=== PATIENT | male | born 1950 | race Caucasian/White ===

== ENCOUNTER 2018-07-13 06:17 | Emergency (ER) | payer BC ==
--- NOTE | 2018-07-13 06:53 | EDM.PDOC ---
ED HPI GENERAL MEDICAL PROBLEM - General Chief Complaint: Chest Pain Stated Complaint: CHEST PAIN Time Seen by Provider: 07/13/18 06:38 Source of Information: Reports: Patient, RN Notes Reviewed - History of Present Illness INITIAL COMMENTS - FREE TEXT/NARRATIVE: 68-year-old male comes in with left anterior chest discomfort. This started about 3 days ago and continues to have "brief stabbing pains left chest, just left of the midline. Noticed that certain types of motion will bring on the pain or make the pain worse. He is not been ill with cough fever or chills. Also has had some mild numbness of the medial aspect of his left arm there is been no focal weakness. No fall or blow to the chest. 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 He does have history of hypertension and also does have history of coronary artery disease with one stent placed about 15 years ago. Middle Chest Pain Score (Numeric/FACES): 4 - Related Data Allergies Allergy/AdvReac Type Severity Reaction Status Date / Time lidocaine Allergy Syncope Verified 07/13/18 06:32 zylocam Allergy Other Uncoded 07/13/18 06:32 Home Meds: Home Meds Omeprazole [Prilosec] 20 mg PO DAILY #14 capsule. 11/01/14 [Rx] Past Medical History Other HEENT History: wears eyeglasses Cardiovascular History: Reports: High Cholesterol, Hypertension, [place] Gastrointestinal History: Reports: GERD - Past Surgical History Cardiovascular Surgical History: Reports: Coronary Artery Stent Social & Family History - Family History Family Medical History: Noncontributory - Tobacco Use Smoking Status *Q: Current Every Day Smoker Years of Tobacco use: 10 Packs/Tins Daily: 1 - Alcohol Use Days Per Week of Alcohol Use: 7 Number of Drinks Per Day: 1 Total Drinks Per Week: 7 - Recreational Drug Use Recreational Drug Use: No ED ROS GENERAL - Review of Systems Review Of Systems: See Below Constitutional: Denies: Fever, Chills HEENT: Reports: No Symptoms Respiratory: Denies: Shortness of Breath, Pleuritic Chest Pain, Cough Cardiovascular: Reports: Chest Pain GI/Abdominal: Denies: Abdominal Pain, Nausea, Vomiting Musculoskeletal: Denies: Shoulder Pain, Arm Pain, Back Pain Skin: Reports: No Symptoms Neurological: Reports: Numbness (He has had some mild numbness the last few days medial aspect of left arm) ED EXAM, GENERAL - Physical Exam Exam: See Below General Appearance: Alert, No Apparent Distress Throat/Mouth: Normal Inspection Head: Atraumatic Neck: Supple, Full Range of Motion Respiratory/Chest: No Respiratory Distress, Lungs Clear, Normal Breath Sounds, Other (There is tenderness in the left chest along the lower left sternal border ) Cardiovascular: Regular Rate, Rhythm GI/Abdominal: Soft, Non-Tender Extremities: Normal Range of Motion. No: Pedal Edema, Leg Pain Neurological: No Motor/Sensory Deficits Skin Exam: Dry, Normal Color EKG INTERPRETATION Rhythm: NSR P-Wave: Present QRS: Normal QT: Normal Course - Vital Signs Last Recorded V/S: Last Vital Signs Temp 98.1 F 07/13/18 06:26 Pulse 82 07/13/18 06:26 Resp 18 07/13/18 06:26 BP 151/99 H 07/13/18 06:26 Pulse Ox 96 07/13/18 06:26 - Orders/Labs/Meds Orders: Active Orders 24 hr Category Date Time Status EKG 12 Lead [EKG Documentation Completion] [RC] STAT Care 07/13/18 06:49 Active Labs: Laboratory Tests 07/13/18 Range/Units 07:20 Troponin I < 0.017 (0.00-0.056) ng/mL Departure - Departure Time of Disposition: 08:12 Disposition: Home, Self-Care 01 Condition: Fair Clinical Impression: Chest wall pain Referrals: Viet Soto Jr, MD [Primary Care Provider] - Forms: ED Department Discharge, ED Return to Work/School Form Additional Instructions: Advil or ibuprofen 600 mg up to 3 times daily with food for pain and inflammation, you may alternate ice and heat as needed, avoid heavy lifting, no lifting more than 30 pounds recommended for the remainder of this week or until discomfort completely resolved, follow-up clinic if not much better within 5-7 days as expected, return to ED as needed if symptoms worsening in any way - My Orders Last 24 Hours: My Active Orders 07/13/18 06:49 EKG 12 Lead [EKG Documentation Completion] [RC] STAT - Assessment/Plan Last 24 Hours: My Active Orders 07/13/18 06:49 EKG 12 Lead [EKG Documentation Completion] [RC] STAT
[2018-07-13 08:48] VITALS: BP 146/99
== END 2018-07-13 08:25 | disposition home or self-care (01) ==
LOC: JD.ED 06:17
DX: R07.89 Other chest pain (principal); I10 Essential (primary) hypertension; K21.9 Gastro-esophageal reflux disease without esophagitis; F17.210 Nicotine dependence, cigarettes, uncomplicated; Z88.8 Allergy status to other drugs, medicaments and biological substances; Z79.899 Other long term (current) drug therapy
CPT/HCPCS: 36415; 84484; 93005; 99285-25

== ENCOUNTER 2018-10-22 08:19 | Inpatient (IN) | payer BC ==
[2018-10-22] MEDS ORDERED: Sodium Chloride 0.9% 10 ML Syringe FLUSH PRN ×2 (08:30→15:39)
--- NOTE | 2018-10-22 08:58 | EDM.PDOC ---
ED HPI GENERAL MEDICAL PROBLEM - General Chief Complaint: Chest Pain Stated Complaint: [facility] Time Seen by Provider: 10/22/18 08:21 Source of Information: Reports: Patient, RN Notes Reviewed - History of Present Illness INITIAL COMMENTS - FREE TEXT/NARRATIVE: 68-year-old male has been brought here by [place] [facility] after experiencing symptoms of dizziness, headedness, numbness of his face, hands and arms bilaterally. He was driving on his way to work when the symptoms all started. He states he has had very occasional mild ache of his chest off and on for the past 2 weeks but was not having chest pain this morning. No nausea, vomiting or diaphoresis. He states he was just getting out of town, drove back to the [place] [facility], was given a nitroglycerin and aspirin 325 oral and then transported here without any further incident. On arrival to ED the dizziness is gone. The numbness and tingling also is gone. He continues to have no chest discomfort or difficulty breathing. He does have history of coronary artery disease with "one stent placed about 15 years ago. Does continue to smoke. 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, IV/IO, Nitroglycerin - Related Data Allergies Allergy/AdvReac Type Severity Reaction Status Date / Time lidocaine Allergy Syncope Verified 10/22/18 13:40 zylocam Allergy Other Uncoded 10/22/18 13:40 Home Meds: Home Meds Aspirin [Ecotrin EC] 81 mg PO DAILY 10/22/18 [History] Hydrochlorothiazide [Microzide] 12.5 mg PO DAILY 10/22/18 [History] Lisinopril 40 mg PO DAILY 10/22/18 [History] atorvaSTATin [Lipitor] 10 mg PO DAILY 10/22/18 [History] Past Medical History Other HEENT History: wears eyeglasses Cardiovascular History: Reports: High Cholesterol, Hypertension, [place] Gastrointestinal History: Reports: GERD - Past Surgical History Cardiovascular Surgical History: Reports: Coronary Artery Stent Social & Family History - Family History Family Medical History: Noncontributory - Tobacco Use Smoking Status *Q: Current Every Day Smoker Years of Tobacco use: 2 Packs/Tins Daily: 1 - Caffeine Use Caffeine Use: Reports: Coffee - Alcohol Use Days Per Week of Alcohol Use: 7 Number of Drinks Per Day: 2 Total Drinks Per Week: 14 - Recreational Drug Use Recreational Drug Use: No ED ROS GENERAL - Review of Systems Review Of Systems: See Below Constitutional: Denies: Fever, Chills HEENT: Denies: Throat Pain Respiratory: Reports: Cough (Occasional, chronic). Denies: Shortness of Breath , Pleuritic Chest Pain Cardiovascular: Reports: Chest Pain (Occasional brief episodes mild discomfort off-and-on the last few days) GI/Abdominal: Denies: Abdominal Pain, Nausea, Vomiting Musculoskeletal: Denies: Neck Pain, Shoulder Pain, Arm Pain, Leg Pain Skin: Denies: Diaphoresis, Rash Neurological: Reports: Dizziness, Numbness (Gone), Tingling ( gonegone ) ED EXAM, GENERAL - Physical Exam Exam: See Below General Appearance: Alert, No Apparent Distress Eye Exam: Bilateral Eye: PERRL Throat/Mouth: Normal Inspection Head: Atraumatic. No: Facial Swelling Neck: Supple Respiratory/Chest: No Respiratory Distress, Lungs Clear, Normal Breath Sounds. No: Rhonchi, Wheezing Cardiovascular: Regular Rate, Rhythm GI/Abdominal: Soft, Non-Tender Extremities: Normal Inspection, No Pedal Edema. No: Leg Pain, Increased Warmth Neurological: Alert, Oriented, No Motor/Sensory Deficits Skin Exam: Warm, Dry, Normal Color EKG INTERPRETATION EKG Date: 10/22/18 Rhythm: NSR [place]: Normal P-Wave: Present QRS: Normal ST-T: Normal Course - Vital Signs Last Recorded V/S: Last Vital Signs Temp 98.4 F 10/22/18 08:22 Pulse 88 10/22/18 12:21 Resp 13 10/22/18 08:22 BP 142/100 H 10/22/18 12:21 Pulse Ox 98 10/22/18 08:22 - Orders/Labs/Meds Orders: Active Orders 24 hr Category Date Time Status EKG 12 Lead [EKG Documentation Completion] [RC] STAT Care 10/22/18 08:30 Inactive Chest 1V Frontal [CR] Stat Exams 10/22/18 08:58 Taken Sodium Chloride 0.9% [Saline Flush] Med 10/22/18 08:30 Active 10 ml FLUSH ASDIRECTED PRN Peripheral IV Insertion Adult [OM.PC] Stat Oth 10/22/18 08:30 Ordered Medication Orders Sodium Chloride (Saline Flush) 10 ml FLUSH ASDIRECTED PRN PRN Reason: Keep Vein Open Last Admin: 10/22/18 08:32 Dose: 10 ml Labs: Laboratory Tests 10/22/18 10/22/18 10/22/18 Range/Units 08:40 08:40 10:50 WBC 7.85 (4.23-9.07) K/mm3 RBC 4.74 (4.63-6.08) M/mm3 Hgb 14.3 (13.7-17.5) gm/L Hct 42.6 (40.1-51.0) % MCV 89.9 (79.0-92.2) fl MCH 30.2 (25.7-32.2) pg MCHC 33.6 (32.2-35.5) g/dl RDW Std Deviation 46.0 H (35.1-43.9) fL Plt Count 184 (163-337) K/mm3 MPV 10.4 (9.4-12.3) fl Neut % (Auto) 71.5 H (34.0-67.9) % Lymph % (Auto) 14.3 L (21.8-53.1) % [place] % (Auto) 10.6 (5.3-12.2) % Eos % (Auto) 2.9 (0.8-7.0) Baso % (Auto) 0.4 (0.1-1.2) % Neut # (Auto) 5.62 H (1.78-5.38) K/mm3 Lymph # (Auto) 1.12 L (1.32-3.57) K/mm3 [place] # (Auto) 0.83 H (0.30-0.82) K/mm3 Eos # (Auto) 0.23 (0.04-0.54) K/mm3 Baso # (Auto) 0.03 (0.01-0.08) K/mm3 Sodium 141 (136-145) mEq/L Potassium 4.0 (3.5-5.1) mEq/L Chloride 105 (98-107) mEq/L Carbon Dioxide 26 (21-32) mEq/L Anion Gap 14.0 (5-15) BUN 16 (7-18) mg/dL Creatinine 1.2 (0.7-1.3) mg/dL Est Cr Clr Drug Dosing 61.68 mL/min Estimated GFR (MDRD) > 60 (>60) mL/min BUN/Creatinine Ratio 13.3 L (14-18) Glucose 113 (80-115) mg/dL Calcium 8.9 (8.5-10.1) mg/dL Total Bilirubin 0.3 (0.2-1.0) mg/dL AST 19 (15-37) U/L ALT 26 (16-63) U/L Alkaline Phosphatase 73 (46-116) U/L Troponin I 0.024 0.018 (0.00-0.056) ng/mL Total Protein 6.8 (6.4-8.2) g/dl Albumin 3.7 (3.4-5.0) g/dl Globulin 3.1 gm/dL Albumin/Globulin Ratio 1.2 (1-2) Meds: Medications Generic Name Dose Route Start Last Admin Trade Name Freq PRN Reason Stop Dose Admin Sodium Chloride 10 ml 10/22/18 08:30 10/22/18 08:32 Saline Flush FLUSH 10 ml ASDIRECTED PRN Administration Keep Vein Open Discontinued Medications Generic Name Dose Route Start Last Admin Trade Name Freq PRN Reason Stop Dose Admin Lorazepam 0.5 mg 10/22/18 10:26 10/22/18 10:41 Ativan IVPUSH 10/22/18 10:27 0.5 mg ONETIME ONE Administration Lorazepam Confirm 10/22/18 10:39 10/22/18 10:43 Ativan Administered 10/22/18 10:40 Not Given Dose 2 mg .ROUTE .STK-MED ONE Metoprolol Tartrate 50 mg 10/22/18 12:01 10/22/18 12:21 Lopressor PO 10/22/18 12:02 50 mg ONETIME ONE Administration Nitroglycerin 1 gm 10/22/18 10:26 10/22/18 10:34 Nitro-Bid 2% TOP 10/22/18 10:27 1 gm ONETIME ONE Administration - Re-Assessments/Exams Free Text/Narrative Re-Assessment/Exam: 10/22/18 09:53 Patient continues to rest comfortably while here in the ED, chest x-ray looks fine, troponins come back 0.024, slightly above the less than 0.017 expected. EKG shows very slight St depression V4-V6, less than 0.5 mm. he has been in sinus rhythm no ectopy. We'll plan to do a repeat troponin one hour from now. That will be 2-1/2 hours from time of arrival and 3-1/2 hours from time of his symptoms this morning. 10/22/18 12:00. repeat trop. did come back at .018. He had one episode of mild chest discomfort about 45 minutes ago and also getting some numbness of hands and arms again. He seemed somewhat anxious with that so did treat with ativan 0.5 mg IV, and applied 1 inch nitropaste. With that pain and numbness did go away. No focal neuro deficit at time of sx. I did call Len Jaramillo, discussed with Dr Martins, Phlebotomy Support Tech commissioned defence force officer. She does not feel his symptoms are strong enough to justify transfer at this time but also does not feel it is safe for him to go home. Assess this with Dr. Vela, our Hospitalist commissioned defence force officer who does agree to hospital admission at this time to continue monitor from a cardiac and neuro standpoint. Departure - Departure Time of Disposition: 15:08 Disposition: Admitted As Inpatient 67 Condition: Fair Clinical Impression: Atypical chest pain, Dizziness, Paresthesias/numbness, Hypertension - My Orders Last 24 Hours: My Active Orders 10/22/18 08:30 EKG 12 Lead [EKG Documentation Completion] [RC] STAT Sodium Chloride 0.9% [Saline Flush] 10 ml FLUSH ASDIRECTED PRN Peripheral IV Insertion Adult [OM.PC] Stat 10/22/18 08:58 Chest 1V Frontal [CR] Stat - Assessment/Plan Last 24 Hours: My Active Orders 10/22/18 08:30 EKG 12 Lead [EKG Documentation Completion] [RC] STAT Sodium Chloride 0.9% [Saline Flush] 10 ml FLUSH ASDIRECTED PRN Peripheral IV Insertion Adult [OM.PC] Stat 10/22/18 08:58 Chest 1V Frontal [CR] Stat
[2018-10-22] MEDS ORDERED: Nitroglycerin 2% Oint 1 GM UD Packet TOP ONE (10:26)
[2018-10-22] MEDS ORDERED: LORazepam 2 MG/ML SDV IVPUSH ONE (10:26)
[2018-10-22] MEDS ORDERED: LORazepam 2 MG/ML SDV ONE (10:39)
[2018-10-22] MEDS ORDERED: Metoprolol Tartrate 50 MG Tab PO ONE (12:01)
[2018-10-22] MEDS ORDERED: Acetaminophen 325 MG Tab PO PRN (15:39)
[2018-10-22 16:26] LABS: HEMOGLOBIN A1C 6.1 % (4.50-6.20)
--- NOTE | 2018-10-22 16:38 | HP ---
DATE OF ADMISSION: 10/22/2018 HISTORY OF PRESENT ILLNESS: The patient is a 68-year-old male brought in by the [facility] ambulance after presenting with chest pain, dizziness, headache, and numbness on both sides of his face, hands, and arms while he was driving out to work. The patient states he just had hopped in his truck and was going to the round about when symptoms came on and he knew something was wrong. He had been feeling well minutes before, but had the onset of a dizzy sensation with tingling in his face. He had some chest pain. He felt nauseated and he knew something was wrong, so he drove himself to the ambulance center and was brought in by ambulance. The patient states the pain seems to be in the center of the chest. The patient has a history of off and on again chest pain he tells me, although he did not tell this to the ER doctor. He relates that he has had a history of H. pylori and chronic esophagitis and takes medication for this. He takes this almost all the time because when he stops it usually comes back. He was treated for H. pylori about 15 years ago he believes. The patient also states he has chest pains off and on which are sharp pains in the left center of chest which come on without provocation and are not exertional. He states he usually gets them when he is not doing anything such as sitting in a chair or something. He has these off and on and he has had these off and on for years, but they seem to be increasing as well. The patient had quit smoking 3 years ago, but restarted. The patient has had no previous acute coronary episodes, but he did tell the ER physician that he had a stent placed about 15 years ago. The patient was given aspirin and transported to the ER. In the ER, he was found to be stable from a cardiovascular standpoint, but he did have a positive troponin. This was mildly elevated at 0.024 with a cutoff at 0.017. The patient had been given aspirin already. He was not having any chest pain and so he did not have any other acute treatments. His EKG did not show ST-T wave changes and was in normal sinus rhythm. The patient was not having ectopy on the monitor. was consulted who noted that in reviewing it with Dr. Loredo, his blood pressure was elevated. His symptoms were both neurologic and cardiovascular in that she did not feel comfortable sending him home, but with his troponin coming down to near normal level 0.018 on a 2nd troponin, she did not have enough reason to send him to the angiogram suite. It was recommended he be admitted for full observation, treatment of any residual chest pain and serial troponins, and a stress test. The observation is felt necessary secondary to the patient's symptoms fluctuating and his positive enzymes. PAST MEDICAL HISTORY: Again remarkable for possible stent 15 years ago. The patient is somewhat of a poor historian. Also remarkable for hypertension on hydrochlorothiazide, doctoring with Dr. Soto. Also remarkable for nausea and vomiting. The patient states when he drinks coffee or eats in the morning, he will oftentimes get vomiting and this is just the way it is. This causes some chest pain and esophagitis symptoms. He relates that he has had H. pylori, but he was treated with antibiotics at one point. He does not have any known history of other acute cardiovascular episodes or diagnosis of previous AK. The patient has no history of intervention locally. SOCIAL HISTORY: The patient has a history of smoking a pack per day for over 25 years. He quit for a period of 20 years and then restarted 3 years ago. The patient apparently did not chew tobacco. He does not use any drugs. He has no marijuana use. He has no history of hepatitis, STDs, MRSA. The patient does have a girlfriend. REVIEW OF SYSTEMS: Otherwise negative for any melena, other abdominal symptoms, heavy alcohol intake. LABORATORY DATA: Other lab work essentially unremarkable other than creatinine of 1.4, platelets 184, hemoglobin of 14.3, white count is normal. Liver function tests, electrolytes, kidney tests are all normal. Initial troponin 0.024. Repeat troponin 0.018. The patient has a hep line in place and has been given Ativan x1 and metoprolol as well as Nitro-Bid was started. RADIOGRAPHIC STUDIES: EKG was reviewed by Dr. Loredo who thought there was very slight ST depression at V4 to V6 less than 0.5 mm, and because of this, he is again thought not to be appropriate for discharge. PHYSICAL EXAMINATION: GENERAL: Shows a well-developed, well-nourished, male, in no obvious distress. Does not appear to be having any significant pain and/or neurologic or cardiovascular symptoms. VITAL SIGNS: Stable. Heart rate in the 70s. HEENT: Unremarkable. NECK: Thyroid grossly normal. Carotids without bruits. No axillary nodes. No neck nodes. HEART: The patient has a regular rate and rhythm with an occasional ectopic appreciated transmitted to the wrist. Cardiac exam shows no other findings. LUNGS: Lung sounds are clear, but diminished. ABDOMEN: Benign. GENITALIA: Unremarkable. EXTREMITIES: No hernias appreciated. He has no significant back or thoracic deformities. NEUROLOGIC: Grossly normal. He is right-handed. Strength testing for upper and lower extremities is completely benign. He has normal reflexes, normal balance, unremarkable [place]. He has no cranial nerve findings. ASSESSMENT: 1. Chest pain, severe spell of left chest pain with some radiation and bilateral arm pain and facial numbness. 2. This all sounds worrisome, not only for a possible acute myocardial infarction with a positive troponin and ST changes which are minimal at rest, but still there, and he needs to be ruled out for an acute ongoing cardiovascular event. The patient has no other neurologic signs. History is somewhat difficult to elicit and interpret as patient is somewhat vague about details of previous cardiovascular evaluation and apparently has a stent x1. 3. History of vomiting, recurrent, common, and chronic with symptoms of esophagitis and gastritis. 4. Nicotine addiction. The patient would like to quit. The patient states he does not need a nicotine patch. 5. Hypertension. 6. Possible hyperlipidemia by history. The patient is a bit unclear on this. PLAN: His x-ray shows no evidence of aortic aneurysm or other issues. I would agree that rule out AK would be the most pertinent priority. The patient should have a stress test because of the nature of his symptoms and this was discussed with the patient and he is agreeable. This would be if the patient does in fact rule out completely. If the patient does not and has more significant troponin elevations and/or chest pain and/or changes on his EKG, then he would need to go to [place] for further evaluation with Cardiology. The patient is agreeable to this approach. We will also screen to see if his H. pylori status is cured. Given his history, we will continue the patient's current medications, control his blood pressure. MMODAL /[id number]
[2018-10-22] MEDS: Aspirin 81 MG Tab.EC PO SCH (17:29)
[2018-10-22] MEDS: Simvastatin 10 MG Tab PO SCH (17:29)
[2018-10-22] MEDS: Hydrochlorothiazide 12.5 MG Cap PO SCH (17:29)
[2018-10-22] MEDS: Enoxaparin 40 MG/0.4 ML Syringe SUBCUT SCH (17:40)
[2018-10-23] MEDS: Enoxaparin 40 MG/0.4 ML Syringe SUBCUT SCH (08:19)
[2018-10-23] MEDS: Hydrochlorothiazide 12.5 MG Cap PO SCH (08:20)
[2018-10-23] MEDS: Aspirin 81 MG Tab.EC PO SCH (08:20)
[2018-10-23] MEDS: Simvastatin 10 MG Tab PO SCH (08:21)
[2018-10-23] MEDS ORDERED: Losartan 100 MG Tab PO SCH (09:00)
[2018-10-23] MEDS ORDERED: Nicotine 7 MG/24 Hr Patch TRDERM SCH (10:00)
--- NOTE | 2018-10-23 11:19 | PCM.DCSUM1 ---
Discharge Summary - Hospital Course Free Text/Narrative:: asymptomatic since admit and last trop and cpk neg and telemetry negative . he feels well and has mild chest wall pain . he want s to go sit at home . confirmed hx of am nausea and vomiting but he has no cardinal symptoms. hx of esophagitis not treated and recommended evalutation as outpatient . dc home on restricted activity a nd stress test in am . b.p controlled and lipids stable cont baby asa and follow up on bs monitoring . HPI Initial Comments: see admit note Diagnosis: Stroke: No - Discharge Data Discharge Date: 10/23/18 Discharge Disposition: Home, Self-Care 01 Condition: Good - Discharge Diagnosis/Problem(s) (1) Dizziness SNOMED Code(s): 257003370, 438551308 ICD Code: R42 - DIZZINESS AND GIDDINESS Status: Resolved Priority: Low Current Visit: Yes Onset Date: 10/22/18 Problem Details: recommend op carotid us and stop smoking (2) Hypertension SNOMED Code(s): 09262637 ICD Code: I10 - ESSENTIAL (PRIMARY) HYPERTENSION Status: Chronic Priority : Medium Current Visit: Yes Onset Date: 10/22/18 Problem Details: switched to losartan Qualifiers: Hypertension type: essential hypertension Qualified Code(s): I10 - Essential (primary) hypertension (3) Paresthesias/numbness SNOMED Code(s): 20544444 ICD Code: R20.9 - UNSPECIFIED DISTURBANCES OF SKIN SENSATION Status: Acute Priority: Medium Current Visit: Yes Onset Date: 10/21/18 (4) Chest pain SNOMED Code(s): 28719891 ICD Code: R07.9 - CHEST PAIN, UNSPECIFIED Status: Resolved Priority: Medium Current Visit: No Onset Date: 10/22/18 Problem Details: precordial pain resolved on admission / 2) chest wall pain still mild and if he turns left or stretches. 3) esophagitis vomiting minimal pain at all Qualifiers: Chest pain type: precordial pain Qualified Code(s): R07.2 - Precordial pain (5) Chest wall pain SNOMED Code(s): 389668215 ICD Code: R07.89 - OTHER CHEST PAIN Status: Acute Current Visit: No (6) Helicobacter positive gastritis SNOMED Code(s): 353177797 ICD Code: K29.70 - GASTRITIS, UNSPECIFIED, WITHOUT BLEEDING; B96.81 - HELICOBACTER PYLORI THE CAUSE OF DISEASES CLASSD ELSWHR Status: Acute Current Visit: No (7) Pre-diabetes SNOMED Code(s): 964385821 ICD Code: R73.03 - PREDIABETES Status: Acute Priority: Medium Current Visit: Yes Onset Date: 10/22/18 Problem Details: low carbn diet and follow up for monitoring bs training (8) Esophagitis SNOMED Code(s): 07124967 ICD Code: K20.9 - ESOPHAGITIS, UNSPECIFIED Status: Acute Priority: Low Current Visit: Yes Onset Date: 10/22/18 Problem Details: vomiting and non toleratnace of tomato and coffea - Patient Summary/Data Consults: Consultations 10/22/18 15:49 Consult recommended for g.i symptoms . endoscopy sec to terminal supervisor vomiting Recommended Follow-up Testing/Procedures: stress test as o.p in am . carotid us as o.p. referral to gen surgery for endoscopy sec inge chronic vomiting . bs monitoring and d.e. referral . f/u primary care - Patient Instructions Diet, Other: low carb diet Activity: Rest and Relax Today (stress test in am ) Driving: May Drive Today Showering/Bathing: May Shower Other/Special Instructions: low activity. return if chest pain returns - Discharge Plan *PRESCRIPTION DRUG MONITORING PROGRAM REVIEWED*: Not Applicable *COPY OF PRESCRIPTION DRUG MONITORING REPORT IN PATIENT HUMBERTO: Not Applicable Prescriptions/Med Rec: Losartan [Cozaar] 100 mg PO DAILY 90 Days #90 tablet Nicotine [Habitrol] 7 mg TRDERM DAILY 30 Days #30 patch Home Medications: Home Meds Aspirin [Ecotrin EC] 81 mg PO DAILY 10/22/18 [History] Hydrochlorothiazide [Microzide] 12.5 mg PO DAILY 10/22/18 [History] atorvaSTATin [Lipitor] 10 mg PO DAILY 10/22/18 [History] Losartan [Cozaar] 100 mg PO DAILY 90 Days #90 tablet 10/23/18 [Rx] Nicotine [Habitrol] 7 mg TRDERM DAILY 30 Days #30 patch 10/23/18 [Rx] Oxygen Therapy Mode: Room Air Forms: ED Department Discharge Referrals: Viet Soto Jr, MD [Primary Care Provider] - - Discharge Summary/Plan Comment DC Time >30 min.: Yes - General Info Date of Service: 10/23/18 Admission Dx/Problem (Free Text: chest pain episode with pos. trop and now normal and no findings ekg and asymptomatic . esoph chronic with vomiting chest wall pain mild elavated bs/ prediabetes hypertension controlled switched to losartin sec to vomiting and cough nicotine dependance start low dose patch Functional Status: Reports: Pain Controlled - Review of Systems General: Reports: No Symptoms (mild anterior chest wall pain ) HEENT: Reports: No Symptoms Pulmonary: Reports: No Symptoms Cardiovascular: Reports: No Symptoms Gastrointestinal: Reports: No Symptoms Genitourinary: Reports: No Symptoms Musculoskeletal: Reports: No Symptoms Skin: Reports: No Symptoms Neurological: Reports: No Symptoms Psychiatric: Reports: No Symptoms - Patient Data Vitals - Most Recent: Last Vital Signs Temp 36.7 C 10/23/18 07:42 Pulse 66 10/23/18 07:42 Resp 15 10/23/18 07:42 BP 136/98 H 10/23/18 08:20 Pulse Ox 94 L 10/23/18 07:42 Weight - Most Recent: 83.149 kg I&O - Last 24 hours: Intake & Output 10/22/18 10/23/18 10/23/18 22:59 06:59 14:59 Intake Total 800 200 Balance 800 200 Lab Results - Last 24 hrs: Laboratory Results - last 24 hr 10/22/18 10/22/18 10/22/18 Range/Units 10:50 16:10 16:10 Hemoglobin A1c 6.10 (4.50-6.20) % CK-MB (CK-2) 1.5 (0-3.6) ng/ml Troponin I 0.018 < 0.017 (0.00-0.056) ng/mL Triglycerides 144 (<150) mg/dL Cholesterol 108 (<200) mg/dL LDL Cholesterol Direct 39 (<100) mg/dL HDL Cholesterol 51.0 (40-59) mg/dL CHUCK Results - Last 24 hrs: Microbiology 10/23/18 09:00 Helicobacter pylori Antigen - Final Stool / Feces NEGATIVE H. PYLORI AG REFERENCE RANGE: NEGATIVE Med Orders - Current: Current Medications Acetaminophen (Tylenol) 650 mg PO Q4H PRN PRN Reason: Pain (Mild 1-3)/fever Aspirin (Halfprin) 81 mg PO DAILY [facility] Last Admin: 10/23/18 08:20 Dose: 81 mg Enoxaparin Sodium (Lovenox) 40 mg SUBCUT DAILY [facility] Last Admin: 10/23/18 08:19 Dose: 40 mg Hydrochlorothiazide (Hydrochlorothiazide) 12.5 mg PO DAILY [facility] Last Admin: 10/23/18 08:20 Dose: 12.5 mg Losartan Potassium (Cozaar) 100 mg PO DAILY [facility] Last Admin: 10/23/18 08:20 Dose: 100 mg Miscellaneous Information (Remove Patch) 1 ea TRDERM DAILY [facility] Nicotine (Habitrol) 7 mg TRDERM DAILY [facility] Simvastatin (Zocor) 10 mg PO DAILY [facility] Last Admin: 10/23/18 08:21 Dose: 10 mg Sodium Chloride (Saline Flush) 10 ml FLUSH ASDIRECTED PRN PRN Reason: Keep Vein Open Last Admin: 10/22/18 08:32 Dose: 10 ml Sodium Chloride (Saline Flush) 10 ml FLUSH ASDIRECTED PRN PRN Reason: Keep Vein Open Discontinued Medications Lorazepam (Ativan) 0.5 mg IVPUSH ONETIME ONE Stop: 10/22/18 10:27 Last Admin: 10/22/18 10:41 Dose: 0.5 mg Lorazepam (Ativan) Confirm Administered Dose 2 mg .ROUTE .STK-MED ONE Stop: 10/22/18 10:40 Last Admin: 10/22/18 10:43 Dose: Not Given Metoprolol Tartrate (Lopressor) 50 mg PO ONETIME ONE Stop: 10/22/18 12:02 Last Admin: 10/22/18 12:21 Dose: 50 mg Nitroglycerin (Nitro-Bid 2%) 1 gm TOP ONETIME ONE Stop: 10/22/18 10:27 Last Admin: 10/22/18 10:34 Dose: 1 gm - Exam General: Reports: Alert, Oriented HEENT: Reports: Pupils Equal, Pupils Reactive, EOMI, Mucous Membr. Moist/[place] Neck: Reports: Supple Lungs: Reports: Clear to Auscultation, Normal Respiratory Effort Cardiovascular: Reports: Regular Rate, Regular Rhythm GI/Abdominal Exam: Normal Bowel Sounds, Soft, Non-Tender, No Organomegaly, No Distention, No Abnormal Bruit, No Mass, Pelvis Stable (Male) Exam: No Hernia, Normal Inspection, Normal Prostate, Circumcised Rectal (Males) Exam: Normal Exam, Normal Rectal Tone, Prostate Normal Back Exam: Reports: Normal Inspection, Full Range of Motion Extremities: Normal Inspection, Normal Range of Motion, Non-Tender, No Pedal Edema, Normal Capillary Refill Skin: Reports: Warm, Dry, Intact Wound/Incisions: Reports: Healing Well Neurological: Reports: No New Focal Deficit Psy/Mental Status: Reports: Alert, Normal Affect, Normal Mood EKG INTERPRETATION Rhythm: NSR [place]: Normal P-Wave: Present QRS: Normal ST-T: Depressed Comparison: No Change (minimal st .03 mm depression v2-v6)
[2018-10-23 13:30] VITALS: BP 141/89
--- NOTE | 2018-10-23 19:35 | CR ---
Chest: Frontal view of the chest was obtained utilizing portable technique. Comparison: Prior chest x-ray of 11/01/14. Heart size and mediastinum are normal. Lungs are clear. Bony structures are grossly intact. Impression: 1. Nothing acute is appreciated on portable chest x-ray. Diagnostic code #1
[2018-10-24] MEDS ORDERED: Remove Patch*NICOTINE PATCH TRDERM SCH (09:00)
== END 2018-10-23 13:10 | disposition home or self-care (01) | DRG 198 ==
LOC: JD.ED 08:19 → JD.MS 12:30
PROVIDERS: ADMIT Pediatrics; ATTEND Pediatrics
DX: R07.2 Precordial pain (principal); I10 Essential (primary) hypertension; I25.10 Atherosclerotic heart disease of native coronary artery without angina pectoris; E78.00 Pure hypercholesterolemia, unspecified; F17.210 Nicotine dependence, cigarettes, uncomplicated; R20.9 Unspecified disturbances of skin sensation; K21.0 Gastro-esophageal reflux disease with esophagitis; K29.70 Gastritis, unspecified, without bleeding; R07.89 Other chest pain; R73.03 Prediabetes; Z88.8 Allergy status to other drugs, medicaments and biological substances; Z79.82 Long term (current) use of aspirin; Z79.899 Other long term (current) drug therapy; I25.2 Old myocardial infarction; Z95.5 Presence of coronary angioplasty implant and graft
CPT/HCPCS: 36415; 71045; 71045-26; 80053; 80061; 82553; 83036; 84484; 85025; 87338; 93005; 93010; 96374; 99284; 99285-25; A9270-GY; J1650; J2060

== ENCOUNTER 2020-09-16 04:28 | Emergency (ER) | payer MEDICARE, OTHER ==
[2020-09-16 04:45] VITALS: BP 163/90; PULSE 78
[2020-09-16] MEDS ORDERED: Amoxicillin/Clavulanate K 875-125 MG Tab PO ONE (04:46)
--- NOTE | 2020-09-16 04:54 | EDM.PDOC ---
ED HPI GENERAL MEDICAL PROBLEM - General Chief Complaint: Bite:Animal, Insect Stated Complaint: ANIMAL BITE-CAT Time Seen by Provider: 09/16/20 04:35 Source of Information: Reports: Patient History Limitations: Reports: No Limitations - History of Present Illness INITIAL COMMENTS - FREE TEXT/NARRATIVE: Patient arrived to ED via private vehicle Incident occurred around 1900 last night 09/15/2020 He has some chronic loss of hand function bilaterally related to service injuries His left hand is more severely affected than the right, and especially the left ring finger He reports that the left ring finger got caught under his cats collar while he was caring for it The cat reacted adversely, and he sustained extensive scratches and wounds to the left hand and forearm He was also bitten on the right hand Reports that he washed the wounds with soap and water, then subsequently applied "peroxide" and then "Clorox" He eventually drove himself to ED for evaluation, as his girlfriend did not want to drive him here earlier on He is right-hand dominant He denies acute loss of hand function/motion over baseline He reports tetanus vaccination less than 10 years ago Left Hand Pain Score (Numeric/FACES): 8 - Related Data Allergies Allergy/AdvReac Type Severity Reaction Status Date / Time lidocaine Allergy Syncope Verified 09/16/20 04:45 zylocam Allergy Other Uncoded 09/16/20 04:45 Home Meds: Home Meds Aspirin [Ecotrin EC] 81 mg PO DAILY 10/22/18 [History] atorvaSTATin [Lipitor] 10 mg PO DAILY 10/22/18 [History] hydroCHLOROthiazide [Microzide] 12.5 mg PO DAILY 10/22/18 [History] Losartan [Cozaar] 100 mg PO DAILY 90 Days #90 tablet 10/23/18 [Rx] Amoxicillin/Potassium Clav [Amox Tr-K Clv 875-125 mg Tab] 1 each PO Q12HR #14 tablet 09/16/20 [Rx] Past Medical History HEENT History: Reports: Other (See Below) Other HEENT History: wears eyeglasses Cardiovascular History: Reports: High Cholesterol, Hypertension, [place] Respiratory History: Reports: Asthma Gastrointestinal History: Reports: GERD Psychiatric History: Reports: PTSD - Past Surgical History Cardiovascular Surgical History: Reports: Coronary Artery Stent Social & Family History - Family History Family Medical History: No Pertinent Family History - Caffeine Use Caffeine Use: Reports: Coffee ED ROS GENERAL - Review of Systems Review Of Systems: See Below Free Text/Narrative/Comment: Constitutional - no fever Musculoskeletal - no neck pain; no back pain; left hand pain/swelling; chronic functional deficit both hands Skin - extensive superficial wounds left upper extremity; cat bites right hand Neurological - no headache; no speech disturbance; no weakness ED EXAM, ANIMAL BITE - Physical Exam Exam: See Below Text/Narrative:: Constitutional - awake; alert; mild pain distress Head - no facial swelling or weakness Eyes - extra ocular motion intact; conjunctiva normal ENT - no nasal deformity; no epistaxis; normal phonation Neck - no swelling Respiratory - normal respiratory effort Musculoskeletal - - right hand: 2 small, superficial wounds over palmar aspect first MCP joint; mild restriction of digital flexion (chronic) - left upper extremity: extensive abrasions and superficial lacerations throughout left hand and distal half of the forearm; dried blood present along all wound margins; mild swelling and erythema dorsal aspect of hand; unable to flex IP joints of the ring finger, able to partially flex remaining digits (chronic) - grossly normal strength and motion Skin - warm; dry Neurologic - normal speech; gait intact Psychiatric - normal mood and affect; memory and attention normal Course - Vital Signs Text/Narrative:: . Considered etiologies included: Abrasions, lacerations, cat bites, hand/digital injury Symptoms and examination were discussed Analgesic treatment was declined Empiric antibiotic therapy was initiated with amoxicillin/clavulanate Radiography was obtained for further investigation, and was unremarkable Wounds were cleaned and dressed by ED RN Patient was provided a work excuse in case of significant functional impairment Patient was felt to be stable for outpatient follow-up Return precautions were provided Last Recorded V/S: Last Vital Signs Temp 36.5 C 09/16/20 04:36 Pulse 78 09/16/20 04:36 Resp 18 09/16/20 04:36 BP 163/90 H 09/16/20 04:36 Pulse Ox 97 09/16/20 04:36 - Orders/Labs/Meds Orders: Active Orders 24 hr Category Date Time Status Hand Comp Min 3V Lt [CR] Stat Exams 09/16/20 04:45 Taken Meds: Medications Discontinued Medications Generic Name Dose Route Start Last Admin Trade Name Freq PRN Reason Stop Dose Admin Amoxicillin/Clavulanate Potassium 1 tab 09/16/20 04:46 09/16/20 04:50 Amoxicillin/Clavulanate K 875-125 Mg Tab PO 09/16/20 04:47 1 tab ONETIME ONE Administration - Radiology Interpretation Free Text/Narrative:: XR left hand, interpreted by commercial real estate underwriter: No fracture or dislocation No cutaneous foreign bodies appreciated Departure - Departure Time of Disposition: 05:33 Disposition: Home, Self-Care 01 Condition: Good Clinical Impression: Cat bite of hand Qualifiers: Encounter type: initial encounter Laterality: right Qualified Code(s): S61.451A - Open bite of right hand, initial encounter Lacerations of multiple sites of left arm Qualifiers: Encounter type: initial encounter Qualified Code(s): S41.112A - Laceration without foreign body of left upper arm, initial encounter - Discharge Information Prescriptions: Amoxicillin/Potassium Clav [Amox Tr-K Clv 875-125 mg Tab] 1 each PO Q12HR #14 tablet Instructions: Animal Bite, Adult Referrals: PCP,None [Primary Care Provider] - Forms: ED Department Discharge, ED Return to Work/School Form Additional Instructions: Return if condition worsens May resume general activity and regular diet as tolerated Keep wounds clean and dry as far as possible; wash gently as needed for hygiene but avoid getting them wet unnecessarily; protect wounds from getting soiled Continue usual medications May use ACETAMINOPHEN and/or IBUPROFEN as needed for pain/inflammation, per product instructions Take AMOXICILLIN/CLAVULANATE antibiotic as prescribed, until completed Follow-up with primary care provider is recommended in 2 to 3 days Sepsis Event Note (ED) - Evaluation Sepsis Screening Result: No Definite Risk - Focused Exam Vital Signs: Vital Signs Temp Pulse Resp BP Pulse Ox 09/16/20 04:36 36.5 C 78 18 163/90 H 97 - My Orders Last 24 Hours: My Active Orders 09/16/20 04:45 Hand Comp Min 3V Lt [CR] Stat - Assessment/Plan Last 24 Hours: My Active Orders 09/16/20 04:45 Hand Comp Min 3V Lt [CR] Stat
--- NOTE | 2020-09-16 07:25 | CR ---
Left hand: 3 views of the left hand were obtained. Comparison: No previous study. Diffuse soft tissue swelling is seen. Small amount of soft tissue air is also noted. Slight deformity is noted of the distal phalanx of the third finger compatible with old healed injury. Joint space narrowing is noted within the MCP joint of the thumb. No acute fracture, dislocation or other osseous abnormality is appreciated. Impression: 1. Soft tissue injury. 2. Mild degenerative change. 3. No acute osseous abnormality is appreciated. Diagnostic code #3
== END 2020-09-16 05:40 | disposition home or self-care (01) ==
LOC: JD.ED 04:28
DX: S61.451A Open bite of right hand, initial encounter (principal); S41.112A Laceration without foreign body of left upper arm, initial encounter; E78.00 Pure hypercholesterolemia, unspecified; I10 Essential (primary) hypertension; I25.2 Old myocardial infarction; Z79.899 Other long term (current) drug therapy; Z88.4 Allergy status to anesthetic agent; Z88.8 Allergy status to other drugs, medicaments and biological substances; Z79.82 Long term (current) use of aspirin; W55.01XA Bitten by cat, initial encounter
CPT/HCPCS: 73130; 99283; A9270